=== PATIENT | male | born 1945 | race Caucasian/White ===

== ENCOUNTER → 2024-02-12 | Outpatient (BNVA) | payer MEDICARE, BC, SELFPAY | END | disposition home or self-care (01) | PROVIDERS: PCP Internal Medicine; Referring Provider Internal Medicine; Visit Provider Urology | DX: R33.8 Other retention of urine (principal); I10 Essential (primary) hypertension; E78.00 Pure hypercholesterolemia, unspecified; I25.10 Atherosclerotic heart disease of native coronary artery without angina pectoris; I25.2 Old myocardial infarction; J44.9 Chronic obstructive pulmonary disease, unspecified | CPT/HCPCS: 51702; 99212; G0463 ==

== ENCOUNTER → 2024-07-07 | Outpatient (CLI) | payer MEDICARE, BC, SELFPAY ==
[2024-07-07 15:24] LABS: Collection Type, Urine Clean Catch
[2024-07-07 16:32] LABS: Bacteria,Urine 2+; Bilirubin,Urine Negative (Negative); Blood,Urine 3+ (Negative); Color,Urine Yellow (Lt Yel-Yel); Glucose, Urine Negative (Negative); Hyaline Casts,Urine 1 /hpf (0-1); Ketones,Urine Negative (Negative); Leukocyte Esterase,Urine Positive (Negative); Nitrite,Urine Negative (Negative); Protein,Urine 1+ (Neg - Trace); RBC,Urine 334 /hpf (0-3); Squamous Epithelial Cell,Urine 1 /hpf (0-5); Urobilinogen,Urine Negative mg/dL (0.0-1.0); WBC,Urine 709 /hpf (0-5)
[2024-07-07 16:52] LABS: Clarity,Urine Hazy (Clear/Hazy); Culture Indicated,Urine Yes
== END | disposition home or self-care (01) ==
LOC: SLDO 15:18
PROVIDERS: PCP Internal Medicine; Referring Provider Internal Medicine; Visit Provider Internal Medicine
DX: N39.0 Urinary tract infection, site not specified (principal)
CPT/HCPCS: 81001; 87086; 87106

== ENCOUNTER → 2024-07-19 | Outpatient (CLI) | payer MEDICARE, BC, SELFPAY ==
--- NOTE | 2024-07-19 17:01 | XR_ITS ---
Examination: PA lateral chest 2 views Technique: Upright PA lateral chest 2 views Exam date and time: July 19, 2024 1713 hrs. Comparison June 15, 2024 Indications: Right-sided back and chest pain beginning 4 days ago. Findings: Prominent CHF Enlarged cardiac contour with prominent vascular congestion and bilateral pulmonary edema Consider superimposed extensive bilateral pneumonia Transvenous dual-chamber bipolar cardiac leads satisfactory position Moderate osteopenia Impression: Prominent CHF Consider significant superimposed bilateral pneumonia
== END | disposition home or self-care (01) ==
PROVIDERS: PCP Internal Medicine; Referring Provider Internal Medicine; Visit Provider Internal Medicine
DX: J18.9 Pneumonia, unspecified organism (principal)
CPT/HCPCS: 71046

== ENCOUNTER → 2024-07-21 | Outpatient (CLI) | payer MEDICARE, BC, SELFPAY ==
[2024-07-21 11:37] LABS: Basophils # (Auto) 0.1 Thou/mm3 (0.0-0.2); Basophils % (Auto) 1 % (0-2.5); Eosinophils # (Auto) 0.1 Thou/mm3 (0.0-0.5); Eosinophils % (Auto) 2 % (0-10); Hematocrit 35.2 % (41.0-53.0); Hemoglobin 10.6 g/dL (13.5-16.0); Immature Granulocytes % (Auto) 1 % (0-0); Immature Granulocytes Auto 0.04 Thou/mm3 (0.00-0.00); Lymphocytes # (Auto) 1.5 Thou/mm3 (1.0-4.8); Lymphocytes % (Auto) 19 % (10-50); Mean Corpuscular HGB Conc 30.1 g/dl (31.0-37.0); Mean Corpuscular Volume 93 fL (80-100); Monocytes # (Auto) 0.7 Thou/mm3 (0.0-0.8); Monocytes % (Auto) 8 % (0-12); Neutrophils # (Auto) 5.6 Thou/mm3 (1.8-7.7); Neutrophils % (Auto) 70 % (37-80); Nucleated Red Blood Cell % 0 /100 WBC (0); Platelet Count 260 Thou/mm3 (140-440); RDW Standard Deviation 56.8 fL (35.1-43.9); Red Blood Count 3.79 Miln/mm3 (4.50-5.90); White Blood Count 8.1 Thou/mm3 (3.8-10.6)
[2024-07-21 12:13] LABS: Alanine Aminotransferase 12 U/L (10-49); Albumin, Serum 4.2 gm/dL (3.4-4.8); Alkaline Phosphatase 102 U/L (46-116); Anion Gap 7 (7-16); Aspartate Amino Transferase 14 U/L (0-34); BUN/Creatinine Ratio 17 Ratio (12-20); Blood Urea Nitrogen 26 mg/dL (9-23); Calcium 10.5 mg/dL (8.3-10.6); Calcium (Corrected) 10.5 mg/dL (8.5-10.1); Chloride 109 mMol/L (98-107); Creatinine (Component) 1.5 mg/dL (0.6-1.3); Globulin 2.1 gm/dL (2.3-3.5); Glucose 112 mg/dL (74-106); Osmolality,Calculated 292 (275-295); Potassium 5.2 mMol/L (3.4-5.1); Sodium 144 mMol/L (136-145); Total Protein 6.3 gm/dL (5.7-8.2); eGFR 47 See Note
[2024-07-21 12:27] LABS: Bilirubin,Total 0.5 mg/dL (0.3-1.2)
[2024-07-21 12:39] LABS: B-Type Natriuretic Peptide 1138 pg/mL (0-100)
== END | disposition home or self-care (01) ==
LOC: SLDO 10:50
PROVIDERS: PCP Internal Medicine; Referring Provider Internal Medicine; Visit Provider Internal Medicine
DX: I50.22 Chronic systolic (congestive) heart failure (principal); J18.9 Pneumonia, unspecified organism
CPT/HCPCS: 36415; 80053; 83880; 85025

== ENCOUNTER → 2024-08-20 | Outpatient (CLI) | payer MEDICARE, BC, SELFPAY ==
[2024-08-20 16:05] LABS: Collection Type, Urine Clean Catch; Squamous Epithelial Cell,Urine 0 /hpf (0-5)
[2024-08-20 16:46] LABS: Bacteria,Urine 1+; Bilirubin,Urine Negative (Negative); Blood,Urine 2+ (Negative); Budding Yeast,Urine Present; Color,Urine Yellow (Lt Yel-Yel); Glucose, Urine Negative (Negative); Hyaline Casts,Urine < 1 /hpf (0-1); Ketones,Urine Negative (Negative); Leukocyte Esterase,Urine Positive (Negative); Nitrite,Urine Negative (Negative); PH,Urine 6.5 (5.0-7.0); Protein,Urine 2+ (Neg - Trace); RBC,Urine 71 /hpf (0-3); Specific Gravity,Urine 1.019 (1.001-1.035); Urobilinogen,Urine Negative mg/dL (0.0-1.0); WBC,Urine 916 /hpf (0-5)
[2024-08-20 16:51] LABS: Clarity,Urine Cloudy (Clear/Hazy)
== END | disposition home or self-care (01) ==
PROVIDERS: PCP Internal Medicine; Referring Provider Internal Medicine; Visit Provider Internal Medicine
DX: N39.0 Urinary tract infection, site not specified (principal)
CPT/HCPCS: 81001; 87086; 87106

== ENCOUNTER → 2024-08-20 | Outpatient (CLI) | payer MEDICARE, BC, SELFPAY ==
--- NOTE | 2024-08-20 13:36 | XR_ITS ---
Examination: PA lateral chest 2 views TECHNIQUE: Upright PA lateral chest 2 views Exam date and time: August 20, 2023 1355 hours Comparison July 19, 2024 INDICATIONS: History COPD, SOB chest pain beginning 3 days ago FINDINGS: COPD with hyperexpansion Mild CHF with prominent vascular congestion and septal edema Superimposed pneumonia right base Cardiac leads satisfactory position IMPRESSION: COPD Mild CHF Superimposed pneumonia right base
[2024-08-20 16:09] LABS: Albumin, Serum 4.4 gm/dL (3.4-4.8); Anion Gap 7 (7-16); BUN/Creatinine Ratio 13 Ratio (12-20); Blood Urea Nitrogen 22 mg/dL (9-23); Calcium 10.8 mg/dL (8.3-10.6); Calcium (Corrected) 10.8 mg/dL (8.5-10.1); Carbon Dioxide 28.6 mMol/L (20.0-31.0); Chloride 105 mMol/L (98-107); Creatinine (Component) 1.7 mg/dL (0.6-1.3); Glucose 99 mg/dL (74-106); Osmolality,Calculated 284 (275-295); Phosphorous 3.3 mg/dL (2.4-5.1); Sodium 141 mMol/L (136-145); eGFR 40 See Note
== END | disposition home or self-care (01) ==
LOC: CDIM 13:18 → COPL 14:03
PROVIDERS: PCP Internal Medicine; Referring Provider Internal Medicine; Visit Provider Radiology Diagnostic Radiology
DX: J44.0 Chronic obstructive pulmonary disease with (acute) lower respiratory infection (principal); J18.9 Pneumonia, unspecified organism; I50.22 Chronic systolic (congestive) heart failure
CPT/HCPCS: 36415; 71046; 80069

== ENCOUNTER → 2024-10-06 | Outpatient (CLI) | payer MEDICARE, BC, SELFPAY ==
[2024-10-06 16:16] LABS: Collection Type, Urine Clean Catch
[2024-10-06 18:37] LABS: Bacteria,Urine 1+; Bilirubin,Urine Negative (Negative); Blood,Urine 3+ (Negative); Clarity,Urine Turbid (Clear/Hazy); Color,Urine Yellow (Lt Yel-Yel); Glucose, Urine Negative (Negative); Hyaline Casts,Urine 2 /hpf (0-1); Ketones,Urine Negative (Negative); Leukocyte Esterase,Urine Positive (Negative); Nitrite,Urine Negative (Negative); PH,Urine 5.5 (5.0-7.0); Protein,Urine 1+ (Neg - Trace); RBC,Urine 171 /hpf (0-3); Specific Gravity,Urine 1.014 (1.001-1.035); Squamous Epithelial Cell,Urine 1 /hpf (0-5); Urobilinogen,Urine Negative mg/dL (0.0-1.0); WBC,Urine 304 /hpf (0-5)
[2024-10-06 18:38] LABS: Culture Indicated,Urine Yes
== END | disposition home or self-care (01) ==
LOC: SLDO 16:05
PROVIDERS: PCP Family Medicine; Referring Provider Internal Medicine; Visit Provider Internal Medicine
DX: N39.0 Urinary tract infection, site not specified (principal)
CPT/HCPCS: 81001; 87086

== ENCOUNTER 2024-10-15 10:09 | Inpatient (IN) | payer MEDICARE, BC, SELFPAY ==
[2024-10-15] VITALS (17 sets, daily range): BP systolic 94–144; BP diastolic 56–88; PULSE 74–103; RESP 15–18; TEMP 36–36.9; O2SAT 86–95; BMI 18.1
--- NOTE | 2024-10-15 10:37 | EKG_ITS ---
[facility] Test Date: 2024-10-15 Pat Name: SERGIO SMITH Department: Room: - Gender: Male Outside Plant Technician: : 1945 Requested By: Mick Sahu Order Number: [id number] Reading MD: Mick Sahu Measurements Intervals [place] Rate: 85 P: 28 VT: 163 QRS: -47 QRSD: 112 T: 90 QT: 317 QTc: 378 Interpretive Statements SINUS RHYTHM WITH OCCASIONAL VENTRICULAR PREMATURE COMPLEXES LOW QRS VOLTAGE IN EXTREMITY LEADS [QRS DEFLECTION < 0.5 mV IN LIMB LEADS] LEFT ANTERIOR FASCICULAR BLOCK [QRS AXIS <= -45, QR IN I, RS IN II] POSSIBLE ANTERIOR MYOCARDIAL INFARCTION , PROBABLY OLD [30 ms Q WAVE IN V3/V4, OR R < 0.2 mV IN V4] INFERIOR MYOCARDIAL INFARCTION , PROBABLY OLD [40+ ms Q WAVE AND/OR ST/T ABNORMALITY IN II/aVF] Compared to ECG 06/08/2024 13:02:42 Ventricular premature complex(es) now present Left anterior fascicular block now present Myocardial infarct finding still present /store/S0/[id number]/ecg/[id number].pdf
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
[2024-10-15 11:19] LABS: Base Excess, Venous 0 (-3-3); Lactate (Lactic Acid) 2.3 mMol/L (0.4-2.0); O2 Saturation, Venous 50 % (96-97); PCO2, Venous 40 mmHg (36-56); PO2, Venous 29 mmHg (15-58)
[2024-10-15 11:22] LABS: Basophils # (Auto) 0.1 Thou/mm3 (0.0-0.2); Basophils % (Auto) 1 % (0-2.5); Eosinophils % (Auto) 0 % (0-10); Hematocrit 39.3 % (41.0-53.0); Immature Granulocytes % (Auto) 0 % (0-0); Immature Granulocytes Auto 0.02 Thou/mm3 (0.00-0.00); Lymphocytes # (Auto) 0.7 Thou/mm3 (1.0-4.8); Lymphocytes % (Auto) 8 % (10-50); Mean Corpuscular HGB Conc 30.5 g/dl (31.0-37.0); Mean Corpuscular Volume 88 fL (80-100); Monocytes # (Auto) 0.6 Thou/mm3 (0.0-0.8); Monocytes % (Auto) 8 % (0-12); Neutrophils # (Auto) 6.6 Thou/mm3 (1.8-7.7); Neutrophils % (Auto) 83 % (37-80); Nucleated Red Blood Cell % 0 /100 WBC (0); Platelet Count 187 Thou/mm3 (140-440); RDW Standard Deviation 52.9 fL (35.1-43.9); Red Blood Count 4.45 Miln/mm3 (4.50-5.90)
[2024-10-15 11:33] LABS: INR 1.2 (0.9-1.3); Prothrombin Time 12.7 Seconds (9.0-12.2)
[2024-10-15 11:46] LABS: Alanine Aminotransferase 31 U/L (10-49); Albumin, Serum 4.8 gm/dL (3.4-4.8); Albumin/Globulin Ratio 1.5 (1.2-2.2); Alcohol, Blood Medical < 3.0 mg/dL (0-10.0); Alkaline Phosphatase 119 U/L (46-116); Ammonia < 10 uMol/L (11-32); Anion Gap 14 (7-16); Aspartate Amino Transferase 50 U/L (0-34); B-Type Natriuretic Peptide 2502 pg/mL (0-100); BUN/Creatinine Ratio 22 Ratio (12-20); Bilirubin,Total 1.9 mg/dL (0.3-1.2); Blood Urea Nitrogen 48 mg/dL (9-23); Calcium 11.9 mg/dL (8.3-10.6); Calcium (Corrected) 11.9 mg/dL (8.5-10.1); Carbon Dioxide 26.1 mMol/L (20.0-31.0); Chloride 108 mMol/L (98-107); Creatinine (Component) 2.2 mg/dL (0.6-1.3); Estimated Creatinine Clearance 22.3 mL/min (>60); Globulin 3.3 gm/dL (2.3-3.5); Glucose 96 mg/dL (74-106); Osmolality,Calculated 306 (275-295); Potassium 4.7 mMol/L (3.4-5.1); Procalcitonin 0.13 ng/ml (0.0-0.49); Sodium 148 mMol/L (136-145); Total Protein 8.1 gm/dL (5.7-8.2); eGFR 30 See Note
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
[2024-10-15] MEDS: SODIUM CHLORIDE 0.9% 1000 ML 2,000 ML 150 ML IV (12:01)
[2024-10-15 12:25] LABS: Troponin I 0.058 ng/mL (0.0-0.045)
[2024-10-15 12:29] LABS: Collection Type, Urine Clean Catch; Squamous Epithelial Cell,Urine 0 /hpf (0-5)
[2024-10-15 12:53] LABS: Bilirubin,Urine Negative (Negative); Blood,Urine 3+ (Negative); Color,Urine Brown (Lt Yel-Yel); Glucose, Urine Negative (Negative); Hyaline Casts,Urine < 1 /hpf (0-1); Ketones,Urine 1+ (Negative); Leukocyte Esterase,Urine Positive (Negative); Nitrite,Urine Negative (Negative); PH,Urine 5.5 (5.0-7.0); Protein,Urine 2+ (Neg - Trace); RBC,Urine 1239 /hpf (0-3); Urobilinogen,Urine Negative mg/dL (0.0-1.0); WBC,Urine 254 /hpf (0-5)
[2024-10-15 12:55] LABS: Amphetamine/Methamp Scrn,U Negative (Negative); Barbiturate Screen,Urine Negative (Negative); Benzodiazepines Screen,Urine Negative (Negative); Benzoylecgonine Screen, Ur Negative (Negative); Fentanyl Screen,Urine Negative (Negative); Opiate Screen,Urine Positive (Negative); THC Screen,Urine Negative (Negative)
[2024-10-15 13:05] LABS: Clarity,Urine Turbid (Clear/Hazy); Culture Indicated,Urine Yes
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
[2024-10-15 14:15] LABS: Reflex Lactate? Y
[2024-10-15 15:35] LABS: Lactic Acid, 3 HR 1.3 mMol/L (0.4-2.0)
[2024-10-15] MEDS: PIPER/TAZO INJ 3.375 GM in SODIUM CHLORIDE 0.9% (Popper) 50 ML IV (15:52)
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
[2024-10-15] MEDS: FUROSEMIDE INJ 10 MG/ML VIAL 2 ML 20 MG IVP (16:57)
[2024-10-15 18:44] LABS: Troponin I 0.049 ng/mL (0.0-0.045)
--- NOTE | 2024-10-15 22:07 | PC.NURSE ---
report was called to Priscila. Pt takenm to bernadette on educational institution curator.
[2024-10-16] VITALS (13 sets, daily range): BP systolic 104–119; BP diastolic 64–73; PULSE 54–128; RESP 18–24; TEMP 36.3–36.6; O2SAT 92–98; BMI 19.8
[2024-10-16] MEDS: FUROSEMIDE INJ 10 MG/ML VIAL 2 ML 20 MG IVP ×2 (05:36→19:08)
[2024-10-16 05:40] LABS: Basophils # (Auto) 0.1 Thou/mm3 (0.0-0.2); Basophils % (Auto) 1 % (0-2.5); Eosinophils % (Auto) 1 % (0-10); Hematocrit 34.2 % (41.0-53.0); Hemoglobin 10.2 g/dL (13.5-16.0); Immature Granulocytes % (Auto) 1 % (0-0); Immature Granulocytes Auto 0.04 Thou/mm3 (0.00-0.00); Lymphocytes # (Auto) 0.6 Thou/mm3 (1.0-4.8); Lymphocytes % (Auto) 8 % (10-50); Mean Corpuscular HGB Conc 29.8 g/dl (31.0-37.0); Mean Corpuscular Volume 91 fL (80-100); Monocytes # (Auto) 0.6 Thou/mm3 (0.0-0.8); Monocytes % (Auto) 7 % (0-12); Neutrophils # (Auto) 6.8 Thou/mm3 (1.8-7.7); Neutrophils % (Auto) 84 % (37-80); Nucleated Red Blood Cell % 0 /100 WBC (0); Platelet Count 149 Thou/mm3 (140-440); RDW Standard Deviation 53.9 fL (35.1-43.9); Red Blood Count 3.78 Miln/mm3 (4.50-5.90); White Blood Count 8.1 Thou/mm3 (3.8-10.6)
[2024-10-16 06:06] LABS: Anion Gap 13 (7-16); BUN/Creatinine Ratio 23 Ratio (12-20); Blood Urea Nitrogen 46 mg/dL (9-23); Calcium 10.8 mg/dL (8.3-10.6); Carbon Dioxide 27.3 mMol/L (20.0-31.0); Chloride 110 mMol/L (98-107); Estimated Creatinine Clearance 24.6 mL/min (>60); Glucose 88 mg/dL (74-106); Magnesium 2.5 mg/dL (1.6-2.6); Osmolality,Calculated 308 (275-295); Potassium 4.1 mMol/L (3.4-5.1); Sodium 150 mMol/L (136-145); eGFR 33 See Note
--- NOTE | 2024-10-16 11:37 | PC.NURSE ---
Dr. Vaca notified, patients at bedside and stated hospice changed home medication and unsure what medications patient is on at home. Unable to update med rec.
--- NOTE | 2024-10-16 13:24 | PC.SS ---
SS informed by JENNIFER Lima, patient's family is providing POA copy and was placed in chart. SS obtained copy of POA. POA explains patient's spouse, Mery Hayes, is medical POA. Secondary is listed as patient's daughter Theresa Patel. SS reviewed patient's electronic chart, current POA already scanned into chart as of 04/06/24.
[2024-10-16] MEDS: cefTRIAXone 1,000 MG in SODIUM CHLORIDE 0.9% (Popper) 50 ML 100 MG IV (14:23)
[2024-10-16] MEDS: ACETAMINOPHEN 325 MG TABLET 650 MG PO (14:23)
--- NOTE | 2024-10-16 15:23 | PD.RESPRO ---
Documentation for date of: 10/16/24 Subjective Subjective Interval history: Overnight, patient was apparently agitated and required mittens. Sitter came to the room and patient was calm and able to be taken off the mittens.?Patient seen and examined at bedside this AM.?He was awake but unable to answer questions appropriately. Patient states I want to ask you some questions privately. and then is unable to phrase a directed question. He states ___ is not getting enough water. Patient's family members came to bedside and able to somewhat redirect him but he was still confused. Discussed goals of care with patient's and decision-maker. She is interested is placing the patient back on hospice care but feels she can no longer handle his care at home and would like him placed at SNF with hospice. Referral was sent. Per she would like his UTI to be treated and any conditions possibly contributing to his pain and discomfort to be treated while he is in the hospital. Therefore ceftriaxone was started. Labs and vitals were reviewed.?The patient was saturating 90% on 5L OxyMask but was also fidgeting with and taking off his OxyMask. Labs show worsening sodium of 150 but improved creatinine from 2.2 to 2.0. Will continue with IV diuresis with Lasix 20 mg BID given the fluid overload and AHRF. Should the patient be in pain, may add hydromorphone PRN instead of morphine given adverse behavioral reaction to morphine at home. Review of systems otherwise negative except what is mentioned above. Exam Vital Signs Temp Pulse Resp BP Pulse Ox O2 Del Method O2 Flow Rate 97.9 F 92 21 H 108/70 95 Oxy Mask 8 10/16/24 12:00 10/16/24 12:00 10/16/24 12:10/16/24 12:10/16/24 12:10/16/24 12:10/16/24 12:00 FiO2 2 10/16/24 12:00 Narrative Exam Physical Exam General: Awake and in no acute distress. Conversational but confused and tangential. Patient mildly agitated with OxyMask. HEENT: Normocephalic, atraumatic, mucous membranes moist. Heart: Regular rate and rhythm, no murmurs. Lungs: Mild bilateral pulmonary crackles. Abdomen: Soft, nondistended, nontender, positive bowel sounds. ?No guarding or rebound tenderness. Neurologic: Alert and oriented x3, no gross neurological deficit, and patient able to move all 4 extremities. Extremities: 2+ non-pitting lower extremity edema. Skin: No rash or ecchymoses. Objective Labs 10/18/24 05:33 10/18/24 05:33 Labs: Laboratory Results - last 24 hr 10/15/24 10/15/24 10/16/24 15:28 18:00 05:07 WBC 8.1 RBC 3.78 L Hgb 10.2 L Hct 34.2 L MCV 91 MCH 27.0 MCHC 29.8 L RDW Std Deviation 53.9 H Plt Count 149 D Neut % (Auto) 84 H Lymph % (Auto) 8 L [place] % (Auto) 7 Eos % (Auto) 1 Baso % (Auto) 1 Neut # (Auto) 6.8 Lymph # (Auto) 0.6 L [place] # (Auto) 0.6 Eos # (Auto) 0.0 Baso # (Auto) 0.1 Immature Gran # (Auto) 0.04 H Absolute Nucleated RBC 0.00 Immature Gran % 1 H Nucleated RBC % 0 Sodium 150 H Potassium 4.1 D Chloride 110 H Carbon Dioxide 27.3 Anion Gap 13 BUN 46 H Creatinine 2.0 H Estim Creat Clear Calc 24.6 L eGFR 33 L BUN/Creatinine Ratio 23 H Glucose 88 Calculated Osmolality 308 H Lactic Acid 1.3 Calcium 10.8 H Magnesium 2.5 Troponin I 0.049 H* ABG Interpretation ABG results: 10/15/24 11:05 VBG pH 7.40 VBG pCO2 40 VBG pO2 29 VBG Base Excess 0 Quality Measures Quality Measures none Advance care planning discussed with:: patient and spouse Assessment & Plan Assessment Current Active Medications: Generic Name Dose Route Start Last Admin Trade Name Freq PRN Reason Stop Dose Admin Acetaminophen 650 mg 10/15/24 16:22 10/16/24 14:23 Acetaminophen 325 Mg Tablet PO 11/14/24 16:21 650 mg Q6H PRN Administration PAIN SCALE 1-3 (mild Albuterol/Ipratropium 3 ml 10/15/24 16:22 Albuterol/Ipratropium (Duoneb) Rt Renetta 3 Ml Nebu INH 11/14/24 16:21 Q4H PRN SHORTNESS OF BREATH OR WHEEZE Furosemide 20 mg 10/15/24 16:25 10/16/24 05:36 Furosemide Inj 10 Mg/Ml Vial 2 Ml IVP 11/14/24 16:24 20 mg BIDD QUENTIN Administration Ceftriaxone Sodium 1,000 mg/ 50 mls @ 100 mls/hr 10/16/24 13:29 10/16/24 14:23 Sodium Chloride IV 10/23/24 13:28 100 mls/hr QDAY QUENTIN Administration Ondansetron HCl 4 mg 10/15/24 16:22 Ondansetron Inj 2 Mg/Ml Inj 2 Ml IV 11/14/24 16:21 Q6H PRN NAUSEA OR VOMITING Protocol Plan 79-year-old male with history of dementia, COPD, and HFrEF, who presented with combative behavior. He was admitted for medical management after his wanted to stop the morphine and hospice care at home. He was found to have GEORGE, CHF exacerbation, and elevated troponin and admitted for further management. #Behavioral changes #Dementia, likely Alzheimer's type, with behavioral disturbances #Acute encephalopathy, likely medication adverse reaction Patient's symptoms are likely related to his baseline dementia with behavioral changes. The use of morphine can be contributing as the reported that his aggressive behavior started at the time morphine was started. Other contributors include pain, constipation, and sleep deprivation from hypoxia. -Avoid morphine use -May add hydromorphone if the patient is expressing pain -Hospice referral sent, pending placement #Goals of care discussion/counseling He is DNR/DNI. He was on hospice. His cannot take care of him at home. She wants him to go back to medical treatment as she does not want him to at home Patient has terminal illnesses. Morphine will provide significant improvement in his symptoms however as we are not giving it, then medical treatment with IV diuretics and DuoNebs will help relieve the symptoms 3 goals of care discussion with the patient's , decided on continued hospice care at SNF -Hospice referral sent, case management updated -Pending placement #Acute hypoxic respiratory failure #Acute exacerbation of HFrEF (EF 30%) #COPD without exacerbation In the setting of prominent CHF and baseline COPD. He is borderline hypotensive. -Continue to gently diurese the patient as he is volume overloaded -Monitor I's and O's -Cardiac diet -DuoNebs as needed #GEORGE on CKD Likely cardiorenal in the setting of CHF exacerbation. Creatinine improved after diuresis. -Careful IV diuresis given the borderline BP -Monitor kidney function -Renally dosed medications -Avoid nephrotoxins #UTI UA showed positive leukocyte esterase, 254 WBCs but no bacteria. Patient unable to describe if he is having any symptoms however per she feels that he is in more discomfort and pain. -Was opted to treat the patient's UTI while in hospital -Started ceftriaxone 1 g daily -Pending urine culture -Blood cultures negative 24 hours #Elevated troponin - downtrended Likely type II non-STEMI in the setting of hypoxia and CHF. Management as above. -No need to further trend troponin #Atrial fibrillation, paroxysmal He was on anticoagulation. Rate controlled. Will avoid beta-blockers in the setting of CHF. -Currently not considering anticoagulation due to plan of resuming hospice care. DVT prophylaxis: SCDs GI prophylaxis: None Diet: Cardiac Crawford: None Lines: Peripheral IV Antibiotics: Ceftriaxone [10/16- ] CODE STATUS: FULL Reason for hospitalization: Acute encephalopathy, possibly secondary to medication effect versus worsening dementia versus UTI Patient plan of care was discussed with the attending physician, Dr. Lacy. Jacinda Vaca, PGY-2 Attending Provider Attestation/Addendum I have examined the patient, reviewed labs and imaging findings, discussed the case with the resident(s), and reviewed entered orders. I agree with the plan of care as outlined in this note. Dr. Regino MD
[2024-10-16 16:58] LABS: Anion Gap 11 (7-16); Calcium 10.4 mg/dL (8.3-10.6); Chloride 111 mMol/L (98-107); Potassium 3.7 mMol/L (3.4-5.1); Sodium 151 mMol/L (136-145)
[2024-10-16 17:11] LABS: Albumin, Serum 3.5 gm/dL (3.4-4.8); BUN/Creatinine Ratio 26 Ratio (12-20); Blood Urea Nitrogen 47 mg/dL (9-23); Calcium (Corrected) 10.8 mg/dL (8.5-10.1); Creatinine (Component) 1.8 mg/dL (0.6-1.3); Estimated Creatinine Clearance 29.7 mL/min (>60); Glucose 97 mg/dL (74-106); Osmolality,Calculated 312 (275-295); Phosphorous 3.7 mg/dL (2.4-5.1); eGFR 38 See Note
[2024-10-17] VITALS (12 sets, daily range): BP systolic 103–118; BP diastolic 58–79; PULSE 68–116; RESP 16–32; TEMP 36.3–37.2; O2SAT 91–99; BMI 19.8
--- NOTE | 2024-10-17 01:50 | PC.NURSE ---
PT STRAINING TO HAVE BM ON BEDPAN. SPOKE WITH DR. DE LA CRUZ. NEW ORDERS FOR MIRALAX X1 GIVEN.
[2024-10-17] MEDS: POLYETHYLENE GLYCOL 17 GM PACKET PO (02:03)
[2024-10-17] MEDS: FUROSEMIDE INJ 10 MG/ML VIAL 2 ML 20 MG IVP (05:21)
[2024-10-17 05:50] LABS: Anion Gap 12 (7-16); BUN/Creatinine Ratio 28 Ratio (12-20); Blood Urea Nitrogen 45 mg/dL (9-23); Carbon Dioxide 29.4 mMol/L (20.0-31.0); Chloride 110 mMol/L (98-107); Creatinine (Component) 1.6 mg/dL (0.6-1.3); Estimated Creatinine Clearance 33.4 mL/min (>60); Glucose 97 mg/dL (74-106); Magnesium 2.3 mg/dL (1.6-2.6); Osmolality,Calculated 311 (275-295); Potassium 3.8 mMol/L (3.4-5.1); Sodium 151 mMol/L (136-145); eGFR 43 See Note
[2024-10-17 06:03] LABS: Basophils # (Auto) 0.1 Thou/mm3 (0.0-0.2); Basophils % (Auto) 1 % (0-2.5); Eosinophils % (Auto) 0 % (0-10); Hematocrit 35.3 % (41.0-53.0); Hemoglobin 10.6 g/dL (13.5-16.0); Immature Granulocytes % (Auto) 0 % (0-0); Immature Granulocytes Auto 0.02 Thou/mm3 (0.00-0.00); Lymphocytes # (Auto) 0.7 Thou/mm3 (1.0-4.8); Lymphocytes % (Auto) 8 % (10-50); Mean Corpuscular Volume 90 fL (80-100); Monocytes # (Auto) 0.7 Thou/mm3 (0.0-0.8); Monocytes % (Auto) 8 % (0-12); Neutrophils # (Auto) 6.9 Thou/mm3 (1.8-7.7); Neutrophils % (Auto) 83 % (37-80); Nucleated Red Blood Cell % 0 /100 WBC (0); Platelet Count 132 Thou/mm3 (140-440); RDW Standard Deviation 53.1 fL (35.1-43.9); Red Blood Count 3.93 Miln/mm3 (4.50-5.90); White Blood Count 8.3 Thou/mm3 (3.8-10.6)
[2024-10-17] MEDS: cefTRIAXone 1,000 MG in SODIUM CHLORIDE 0.9% (Popper) 50 ML 100 MG IV (08:05)
--- NOTE | 2024-10-17 10:01 | PC.SS ---
Addendum entered by Anabel Aldridge 10/17/24 16:47: Patient requires 3midnight stay for SNF. [facility] can accept patient with comfort care. [facility] declined, no male beds available. [facility] and [facility] declined. [facility]- no response. Addendum entered by Anabel Aldridge 10/17/24 10:05: [facility] completed and closed. Original Note: SNF referral submitted to the following local SNFs: [facility], [facility], [facility], [facility], and [facility]. SS awaiting response from accepting facilities. SS contacted patient's spouse, Mery Hayes [phone], to confirm discharge plan of SNF with Hospice. Patient's spouse Mery stated she would like patient to discharge to a local SNF in [place] with [facility]. Patient's spouse Mery stated patient was with [facility] recently and would like to continue with [facility]. SS informed Mery she would inform her once responses from SNF are received.
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
[2024-10-17] MEDS: HALOPERIDOL LACT INJ 5 MG/ML VIAL 2.5 MG IV (11:42)
[2024-10-17] MEDS: ACETAMINOPHEN 325 MG TABLET 650 MG PO (17:46)
[2024-10-17] MEDS: PREPARATION H OINT 30 GM TUBE PR (17:46)
[2024-10-17] MEDS: QUEtiapine FUMARATE 25 MG TABLET PO (20:19)
[2024-10-17] MEDS: HALOPERIDOL LACT INJ 5 MG/ML VIAL IV (21:18)
[2024-10-18] VITALS (9 sets, daily range): BP systolic 98–123; BP diastolic 73–84; PULSE 84–114; RESP 16–33; TEMP 36.2–37.1; O2SAT 86–97; BMI 19.8; BMI 17.6
[2024-10-18 05:59] LABS: Basophils % (Auto) 0 % (0-2.5); Eosinophils % (Auto) 0 % (0-10); Hematocrit 36.8 % (41.0-53.0); Hemoglobin 10.9 g/dL (13.5-16.0); Immature Granulocytes % (Auto) 1 % (0-0); Immature Granulocytes Auto 0.04 Thou/mm3 (0.00-0.00); Lymphocytes # (Auto) 0.6 Thou/mm3 (1.0-4.8); Lymphocytes % (Auto) 8 % (10-50); Mean Corpuscular HGB Conc 29.6 g/dl (31.0-37.0); Mean Corpuscular Volume 91 fL (80-100); Monocytes # (Auto) 0.7 Thou/mm3 (0.0-0.8); Monocytes % (Auto) 10 % (0-12); Neutrophils # (Auto) 6.3 Thou/mm3 (1.8-7.7); Neutrophils % (Auto) 82 % (37-80); Nucleated Red Blood Cell % 0 /100 WBC (0); Platelet Count 120 Thou/mm3 (140-440); RDW Standard Deviation 54.4 fL (35.1-43.9); Red Blood Count 4.03 Miln/mm3 (4.50-5.90); White Blood Count 7.7 Thou/mm3 (3.8-10.6)
[2024-10-18 06:20] LABS: Anion Gap 8 (7-16); BUN/Creatinine Ratio 29 Ratio (12-20); Blood Urea Nitrogen 38 mg/dL (9-23); Calcium 11.1 mg/dL (8.3-10.6); Carbon Dioxide 34.6 mMol/L (20.0-31.0); Chloride 111 mMol/L (98-107); Creatinine (Component) 1.3 mg/dL (0.6-1.3); Estimated Creatinine Clearance 41.1 mL/min (>60); Glucose 125 mg/dL (74-106); Magnesium 2.4 mg/dL (1.6-2.6); Osmolality,Calculated 315 (275-295); Potassium 3.5 mMol/L (3.4-5.1); Sodium 154 mMol/L (136-145); eGFR 56 See Note
[2024-10-18] MEDS: cefTRIAXone 1,000 MG in SODIUM CHLORIDE 0.9% (Popper) 50 ML 100 MG IV (09:10)
--- NOTE | 2024-10-18 09:51 | PC.SS ---
Alberto Hayes is a 79 year old male admitted to [facility] for Behavior changes, CHF exacerbation. SS conducted over the phone contact with pt and POA, Mery Horn [phone]. Mery confirmed demographic information. Pt lives at home with her. Prior to admission pt was requiring a lot of assistance and utilized a walker. [facility] prior to admission. DC options discussed and Mery requested SNF placement with Hospice services. Pts PCP is Dr. Adkins at Dr. Menon office. SS currently working on placement for pt. SS will remain available for any additional needs. ?
[2024-10-18] MEDS: RINGERS LACTATED 1000 ML 1,000 ML 999 ML IV (09:59)
--- NOTE | 2024-10-18 11:49 | ESPR_ITS ---
<Statement entered by Jacinda Vaca MD - 10/19/24 01:08> Patient was seen and examined by me personally. I have directly supervised and reviewed the above documentation by the team resident and agree with its findings with any exceptions or additional findings as below. Plan of care was discussed with the attending, Dr. Lacy. Today the patient continued to appear altered and was less conversant today. He was resting in bed when seen this AM. Discussed with , Mery, decision-maker regarding comfort care status. She was agreeable to discharge to SNF on comfort care. However this evening, he continued to desaturate with 15L O2 and minimal movements. Attempts were made to feed him but he did not take any food and would also desaturate to the 70s quickly. Thus joint decision was made to start the patient on comfort measures. Spoke with Mery via phone as well as Mery's sister in person at the bedside. We agreed on starting a hydromorphone drip as the patient had previously had adverse reaction to morphine. He also had adverse reactions to Ativan so Haldol was added as a prn for breakthrough agitation. Full comfort measures are started, discussed with bedside RN at hand off that the patient's supplemental O2 may be down titrated to 2L for comfort approximately one hour after starting the drip. Jacinda Vaca, PGY-2 Documentation for date of: 10/18/24 Subjective Subjective Interval history: Patient was seen and examined by the bedside. Overnight patient was anxious and agitated, received haldol IV. In the morning, he was confused, lethargic AOx1. He is arranged to be discharged to the [place] [facility] with comfort care. Got an update that SNF requires patient to be on 5L O2 to be accepted. Had a discussion with Dr. Vaca and Dr. Sun present regarding family regarding the discharge plan and the requirement for SNF acceptance. Explained that he will most likely need to be started on medications for air hunger and got a permission that in in case of worsening of his condition to start fentanil drip. It was discussed to not use morphine and lorazepam due to hallucinations and agitation side effects. Exam Vital Signs Temp Pulse Resp BP Pulse Ox O2 Del Method O2 Flow Rate 98.7 F 109 H 26 H 123/83 86 L Oxy Mask 12 10/18/24 08:00 10/18/24 08:00 10/18/24 08:00 10/18/24 08:00 10/18/24 08:00 10/18/24 08:00 10/18/24 08:00 FiO2 2 10/17/24 19:49 Narrative Exam Physical Exam General: Lethargic. Chronically ill-appearing, emaciated. HEENT: Normocephalic, atraumatic, mucous membranes moist. Heart: Regular rate and rhythm, no murmurs. Lungs: Clear to auscultation with no wheezing or crackles. Abdomen: Soft, nondistended, nontender, positive bowel sounds. ?No guarding or rebound tenderness. Neurologic: Alert and oriented x1, lethargic Extremities: No edema. Skin: Bite wound on the right hand, scratch wound on the right shoulder covered with bandages. Objective Labs 10/18/24 05:33 10/18/24 05:33 Labs: Laboratory Results - last 24 hr 10/18/24 05:33 WBC 7.7 RBC 4.03 L Hgb 10.9 L Hct 36.8 L MCV 91 MCH 27.0 MCHC 29.6 L RDW Std Deviation 54.4 H Plt Count 120 L Neut % (Auto) 82 H Lymph % (Auto) 8 L Schuyler % (Auto) 10 Eos % (Auto) 0 Baso % (Auto) 0 Neut # (Auto) 6.3 Lymph # (Auto) 0.6 L Schuyler # (Auto) 0.7 Eos # (Auto) 0.0 Baso # (Auto) 0.0 Immature Gran # (Auto) 0.04 H Absolute Nucleated RBC 0.00 Immature Gran % 1 H Nucleated RBC % 0 Sodium 154 H Potassium 3.5 Chloride 111 H Carbon Dioxide 34.6 H Anion Gap 8 BUN 38 H Creatinine 1.3 Estim Creat Clear Calc 41.1 L eGFR 56 L BUN/Creatinine Ratio 29 H Glucose 125 H Calculated Osmolality 315 H Calcium 11.1 H Magnesium 2.4 ABG Interpretation ABG results: 10/15/24 11:05 VBG pH 7.40 VBG pCO2 40 VBG pO2 29 VBG Base Excess 0 Quality Measures Quality Measures none Advance care planning discussed with:: spouse, child and other Assessment & Plan Assessment Current Active Medications: Generic Name Dose Route Start Last Admin Trade Name Freq PRN Reason Stop Dose Admin Acetaminophen 650 mg 10/15/24 16:22 10/17/24 17:46 Acetaminophen 325 Mg Tablet PO 11/14/24 16:21 650 mg Q6H PRN Administration PAIN SCALE 1-3 (mild Albuterol/Ipratropium 3 ml 10/15/24 16:22 Albuterol/Ipratropium (Duoneb) Rt Renetta 3 Ml Nebu INH 11/14/24 16:21 Q4H PRN SHORTNESS OF BREATH OR WHEEZE Furosemide 20 mg 10/15/24 16:25 10/17/24 05:21 Furosemide Inj 10 Mg/Ml Vial 2 Ml IVP 11/14/24 16:24 20 mg BIDD QUENTIN Administration Ceftriaxone Sodium 1,000 mg/ 50 mls @ 100 mls/hr 10/16/24 13:29 10/18/24 09:10 Sodium Chloride IV 10/23/24 13:28 100 mls/hr QDAY QUENTIN Administration Olanzapine 2.5 mg 10/18/24 21:00 Olanzapine 2.5 Mg Tablet PO 11/17/24 20:59 HS QUENTIN Ondansetron HCl 4 mg 10/15/24 16:22 Ondansetron Inj 2 Mg/Ml Inj 2 Ml IV 11/14/24 16:21 Q6H PRN NAUSEA OR VOMITING Protocol Polyethylene Glycol 17 gm 10/18/24 09:00 10/18/24 09:12 Polyethylene Glycol 17 Gm Packet PO 11/17/24 08:59 Not Given QDAY QUENTIN Plan 79-year-old male with history of dementia, COPD, and HFrEF, who presented with combative behavior. He was admitted for medical management after his wanted to stop the morphine and hospice care at home. He was found to have GEORGE, CHF exacerbation, and elevated troponin and admitted for further management. #Behavioral changes #Dementia, likely Alzheimer's type, with behavioral disturbances #Acute encephalopathy, likely medication adverse reaction Patient's symptoms are likely related to his baseline dementia with behavioral changes. The use of morphine can be contributing as the reported that his aggressive behavior started at the time morphine was started. Other contributors include pain, constipation, and sleep deprivation from hypoxia. -Avoid morphine use -May add hydromorphone if the patient is expressing pain -Patient was accepted for comfort care at SNF, but the requirement is to be on <5L O2. - In case of worsening of condition, family agreed to start fentanyl drip #Goals of care discussion/counseling He is DNR/DNI. He was on hospice. His cannot take care of him at home. She wants him to go back to medical treatment as she does not want him to at home Patient has terminal illnesses. Morphine will provide significant improvement in his symptoms however as we are not giving it, then medical treatment with IV diuretics and DuoNebs will help relieve the symptoms 10/16 goals of care discussion with the patient's , decided on continued hospice care at SNF 10/18 Had a d - Had a discussion with family regarding the discharge plan and the requirement for SNF acceptance. Explained that he will most likely need to be started on medications for air hunger and got a permission that in in case of worsening of his condition to start fentanyl drip. -Pending placement #Acute hypoxic respiratory failure #Acute exacerbation of HFrEF (EF 30%) #COPD without exacerbation In the setting of prominent CHF and baseline COPD. He is borderline hypotensive. -Continue to gently diurese the patient as he is volume overloaded -Monitor I's and O's -Cardiac diet -DuoNebs as needed #GEORGE on CKD Likely cardiorenal in the setting of CHF exacerbation. Creatinine improved after diuresis. -Careful IV diuresis given the borderline BP -Monitor kidney function -Renally dosed medications -Avoid nephrotoxins #UTI UA showed positive leukocyte esterase, 254 WBCs but no bacteria. Patient unable to describe if he is having any symptoms however per she feels that he is in more discomfort and pain. -Ceftriaxone 1 g daily -Urine culture negative -Blood cultures negative #Elevated troponin - downtrended Likely type II non-STEMI in the setting of hypoxia and CHF. Management as above. -No need to further trend troponin #Atrial fibrillation, paroxysmal He was on anticoagulation. Rate controlled. Will avoid beta-blockers in the setting of CHF. -Currently not considering anticoagulation due to plan of resuming hospice care. DVT prophylaxis: SCDs GI prophylaxis: None Diet: Cardiac Crawford: None Lines: Peripheral IV Antibiotics: Ceftriaxone [10/16- ] CODE STATUS: DNR Plan of care discussed with attending Dr. Lacy, PGY-[address] Vaca and PGY-[address] Edwards. Soledad Sun MD, PGY 1. Attending Provider Attestation/Addendum I have examined the patient, reviewed labs and imaging findings, discussed the case with the resident(s), and reviewed entered orders. I agree with the plan of care as outlined in this note, with these additional summaries/recommendations: Patient seen at bedside. Overnight patient became agitated requiring haloperidol. Patient remains encephalopathic this morning. Patient became agitated again and was given additional dose of haloperidol. Patient currently requiring 12 L nasal cannula. Pending further goals of care with patient's medical decision maker. Patient given fluid bolus for worsening hypernatremia and Lasix put on hold. Goals of care was held with patients medical decision maker who is patients . All treatment options including full treatment, hospice, and comfort care discussed at length. At this time patients has decided to proceed with comfort care. She showed good understanding that we will stop all medicines except for comfort. Dr. Regino MD
--- NOTE | 2024-10-18 12:26 | PC.SS ---
Addendum entered by Marbella Ricci 10/18/24 15:19: Pt is currently on 15 liters of O2. Addendum entered by Marbella Ricci 10/18/24 14:53: SS followed up with who states she has spoken to Stella at [facility] about pt discharging to their facility under comfort care not Hospice Services and is agreeable. states pt does not have Medical. states she is unable to care for pt at home. Stella explained pt had an open worker's comp from the past and she will follow up with her billing department to confirm they can still accept pt. Original Note: SS spoke to Stella from [facility] and confirmed they can accept pt under comfort care. SS has informed and provided her with Stella's phone number to discuss coverage at the facility. Per Stella at [facility] pt does not have Medical to cover Hospice at SNF.
[2024-10-18] MEDS: HALOPERIDOL LACT INJ 5 MG/ML VIAL IV (13:55)
[2024-10-18] MEDS: PREPARATION H OINT 30 GM TUBE PR (17:15)
[2024-10-18] MEDS: OLANZapine 2.5 MG TABLET PO (17:17)
[2024-10-18] MEDS: HYDROMORPHONE IV (19:56)
[2024-10-18] MEDS: [UNRECOGNIZED DRUG - OTHER] IV (19:56)
[2024-10-18] MEDS: SCOPOLAMINE 1 MG TDSY TOP (20:16)
[2024-10-18] MEDS: HYDROmorphone INJ 2 MG/ML VIAL IVP (20:16)
--- NOTE | 2024-10-18 22:20 | PC.NURSE ---
Pt transferred from [facility] calm, resting, and sedated on Dilaudid drip. On oxymask at 12L. Pt becomes restless when being manipulated for repositioning, pulling off oxygen mask and telemetry leads. Allevyn replaced to sacrum d/t soilage; new Allevyns placed to bilat heels for prevention and elevated heels on pillows. Assuming care of patient at this time.
[2024-10-19 06:00] VITALS: BMI 17.6
[2024-10-19 07:33] VITALS: BP 84/54; PULSE 89; RESP 12; TEMP 36.2; O2SAT 82
[2024-10-19 08:00] VITALS: PULSE 89
[2024-10-19 12:00] VITALS: PULSE 90
--- NOTE | 2024-10-19 12:30 | PC.SS ---
SS followed up with Stella at [facility] who is aware pt is DNR. SS has sent updated inquiry to [facility], upon their request. Stella at [facility] explained she will provide inquiry for D.O.N to review. [facility], [facility], [facility], [facility], and [facility] have declined. Corie Del Rosario is pending from [facility].
--- NOTE | 2024-10-19 12:45 | ESPR_ITS ---
<Statement entered by Jacinda Vaca MD - 10/19/24 23:48> Patient was seen and examined by me personally. I have directly supervised and reviewed documentation by the team resident and agree with its findings with any exceptions or additional findings as below. Plan of care was discussed with the attending, Dr. Lacy. Comfort measures are continued. Patient seen at bedside, sleeping, appeared comfortable and on hydromorphone drip. Per case management obstacles to the patient's discharge to facility include inability for the facilities to administer pain medication drips or IV pushes. and decision-maker emphasized that she would like patient to stay in [place], however case management discussed that this may not be possible. SNF search has been expanded. Jacinda Vaca, PGY-2 Documentation for date of: 10/19/24 Subjective Subjective Interval history: Patient seen and examined at the bedside. Sleeping in the bed comfortably, breathing deeply with short apnea episodes. Continues to be on hydromorphone drip. Last measured vital signs showed O2 sat of 82. Right now is on 2 L of atmospheric oxygen. Pending placement to SNF for comfort care, awaiting further answer. Exam Vital Signs Temp Pulse Resp BP Pulse Ox O2 Del Method O2 Flow Rate 97.2 F 89 12 84/54 L 82 L Oxy Mask 4 10/19/24 07:33 10/19/24 07:33 10/19/24 07:33 10/19/24 07:33 10/19/24 07:33 10/19/24 07:33 10/19/24 07:33 FiO2 2 10/18/24 12:00 Narrative Exam Physical Exam General: Sleeping in bed. Chronically ill-appearing, emaciated. HEENT: Normocephalic, atraumatic, mucous membranes moist. Heart: Regular rate and rhythm, no murmurs. Lungs: Clear to auscultation with no wheezing or crackles. Abdomen: Soft, nondistended, nontender, positive bowel sounds. ?No guarding or rebound tenderness. Neurologic: Alert and oriented x0, lethargic Extremities: No edema. Skin: Bite wound on the right hand, scratch wound on the right shoulder covered with bandages. Objective Labs 10/18/24 05:33 10/18/24 05:33 ABG Interpretation ABG results: 10/15/24 11:05 VBG pH 7.40 VBG pCO2 40 VBG pO2 29 VBG Base Excess 0 Quality Measures Quality Measures none Advance care planning discussed with:: spouse Assessment & Plan Assessment Current Active Medications: Generic Name Dose Route Start Last Admin Trade Name Freq PRN Reason Stop Dose Admin Acetaminophen 650 mg 10/15/24 16:22 10/17/24 17:46 Acetaminophen 325 Mg Tablet PO 11/14/24 16:21 650 mg Q6H PRN Administration PAIN SCALE 1-3 (mild Acetaminophen 650 mg 10/19/24 08:10 Acetaminophen Supp 650 Mg Supp IL 11/17/24 18:48 Q6HR PRN Fever > 100.4 or Pain(1-3) Protocol Albuterol/Ipratropium 3 ml 10/15/24 16:22 Albuterol/Ipratropium (Duoneb) Rt Renetta 3 Ml Nebu INH 11/14/24 16:21 Q4H PRN SHORTNESS OF BREATH OR WHEEZE Artificial Tears 1 drop 10/18/24 18:49 Artificial Tears 225 Drop/15 Ml Btl BOTH EYES 11/17/24 18:48 Q4HR PRN Dry eyes Atropine Sulfate 2 drop 10/18/24 18:49 Atropine Sulf Op Renetta 1% 5 Ml Btl SL 11/17/24 18:48 Q4HR PRN SECRETIONS Protocol Glycopyrrolate 0.2 mg 10/18/24 18:49 Glycopyrrolate Inj 0.2 Mg/Ml Vial IV 11/17/24 18:48 QID PRN As needed for secretions Protocol Haloperidol Lactate 5 mg 10/18/24 18:52 Haloperidol Lact Inj 5 Mg/Ml Vial IV 10/23/24 18:51 Q6HR PRN AGITATION (SEVERE) Hydromorphone HCl 0.2 mg 10/18/24 18:49 10/18/24 20:16 Hydromorphone Inj 2 Mg/Ml Vial IVP 10/23/24 18:48 0.2 mg Q1H PRN Administration PAIN SCALE 4-10(Mod-Sev Protocol Hydromorphone HCl 30 mg/ IV 30 mls @ 0.5 mls/hr 10/18/24 18:51 10/18/24 19:56 Miscellaneous Supplies IV 11/17/24 18:50 0.5 mls/hr .Q24H PRN Administration TITRATE UP FOR PAIN Ondansetron HCl 4 mg 10/15/24 16:22 Ondansetron Inj 2 Mg/Ml Inj 2 Ml IV 11/14/24 16:21 Q6H PRN NAUSEA OR VOMITING Protocol Scopolamine 1 mg 10/18/24 19:00 10/18/24 20:16 Scopolamine 1 Mg Tdsy TOP 11/17/24 18:59 1 mg Q3D QUENTIN Administration Plan 79-year-old male with history of dementia, COPD, and HFrEF, who presented with combative behavior. He was admitted for medical management after his wanted to stop the morphine and hospice care at home. He was found to have GEORGE, CHF exacerbation, and elevated troponin and admitted for further management. #Behavioral changes #Dementia, likely Alzheimer's type, with behavioral disturbances #Acute encephalopathy, likely medication adverse reaction Patient's symptoms are likely related to his baseline dementia with behavioral changes. The use of morphine can be contributing as the reported that his aggressive behavior started at the time morphine was started. Other contributors include pain, constipation, and sleep deprivation from hypoxia. Plan: -Avoid morphine and ativan use -Hydromorphone drip for comfort #Goals of care discussion/counseling He is DNR/DNI. He was on hospice. His cannot take care of him at home. She wants him to go back to medical treatment as she does not want him to at home Patient has terminal illnesses. Morphine will provide significant improvement in his symptoms however as we are not giving it, then medical treatment with IV diuretics and DuoNebs will help relieve the symptoms 10/16 goals of care discussion with the patient's , decided on continued hospice care at SNF 3 Had a discussion with family regarding the discharge plan and the requirement for SNF acceptance. Plan: -Family showed understanding and agreed to proceed with comfort measures in the hospital -Pending placement for comfort care at SNF #Acute hypoxic respiratory failure #Acute exacerbation of HFrEF (EF 30%) #COPD without exacerbation #GEORGE on CKD #UTI #Elevated troponin - downtrended #Atrial fibrillation, paroxysmal Plan: - Comfort care DVT prophylaxis:none GI prophylaxis: None Diet: comfort feedings Crawford: None Lines: Peripheral IV Antibiotics: none CODE STATUS: DNR Plan of care discussed with attending Dr. Lacy, PGY-[address] Vaca and PGY-[address] Edwards. Soledad Sun MD, PGY 1. Attending Provider Attestation/Addendum I have examined the patient, reviewed labs and imaging findings, discussed the case with the resident(s), and reviewed entered orders. I agree with the plan of care as outlined in this note, with these additional summaries/recommendations: Patient seen at bedside. No acute overnight events. Goals of care meeting was held with patient's medical decision maker yesterday and patient was transitioned to comfort care. He was placed on Dilaudid gtt. and appears very comfortable at bedside. Patient's was updated via telephone today. All questions answered to satisfaction. Patient is currently pending placement although suspect he may unfortunately pass away prior to placement. Dr. Regino MD
--- NOTE | 2024-10-19 15:16 | PC.SS ---
SS followed up with Stella at [facility] who explained they are unable to accommodate pt on a hydro morphine drip and Haldol has to be discontinued for 24 hours before accepting pt to their facility. [facility] is also unable to accommodate Dilaudid pushes, per physician resident's request. SS has informed patient's and sister who were at bedside. They are aware SS will seek placement outside the area through [place] for Hospice bed.
[2024-10-19 16:00] VITALS: PULSE 92
[2024-10-19 16:11] VITALS: PULSE 92; RESP 19; O2SAT 97
[2024-10-19 20:00] VITALS: BP 90/56; PULSE 100; RESP 20; TEMP 36.3; O2SAT 72
[2024-10-20] VITALS (7 sets, daily range): BP systolic 78–88; BP diastolic 44–52; PULSE 83–100; RESP 14–17; TEMP 36.1–36.7; O2SAT 90–93; BMI 17.5
--- NOTE | 2024-10-20 09:06 | PC.SS ---
Addendum entered by AZRA Calderon 10/20/24 14:33: [facility] Hospice nurse informed based on her assessment of the patient today he appears imminent and unstable for transport. Updated medical team during rounds. Daily re-assessment to bed held regarding patient's medical status. Addendum entered by AZRA Calderon 10/20/24 12:17: Hospice referral was sent to [facility] via [employer]. Addendum entered by AZRA Calderon 10/20/24 12:10: Met with patient's , Mery to discuss discharge plan. Patient's does not wish to pursue with [facility] in [place]. Updated SNF in [place] to inform has declined the placement. Patient's , Mery informs she [facility] to do an on-site assessment with the patient to determine if able to accept the patient with services and transition him to home hospice. Addendum entered by AZRA Calderon 10/20/24 10:06: [facility] in [place] informed they can accept the patient today at their facility with transition to oral morphine. Updated Dr. Vaca and patient's to make aware. Medical team to discuss with patient's . Patient's is also considering home hospice now as well, will allow time to discuss with medical team and patient's to make decision on disposition plan. Addendum entered by AZRA Calderon 10/20/24 09:12: Received a call from a SNF in [facility]. Spoke with Santa who informed her and her DON will to determine if able to accept the patient. Santa informs they would be able to offer comfort care/end of life. Original Note: SS follow up: SNF search expanded to SNF's around [place].
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
[2024-10-21] VITALS (9 sets, daily range): BP systolic 47–64; BP diastolic 26–38; PULSE 67–87; RESP 15–18; TEMP 35.7–35.9; O2SAT 91–94; BMI 17.8
--- NOTE | 2024-10-21 08:50 | PC.SS ---
SS follow up: discussed with attending Dr. Lacy and brand planner Marbella in regards to the current status of the patient. Per Dr. Lacy, patient is imminent and would not be ideal to discharge the patient at this time.
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
--- NOTE | 2024-10-21 19:26 | PC.NURSE ---
Pt seen resting comfortable no s/s of discomfort noted respirations even, at bedside current volume to be infused on Diluadid pump 9.17, catheter secure changed.
[2024-10-21] MEDS: SCOPOLAMINE 1 MG TDSY TOP (20:51)
--- NOTE | 2024-10-21 20:54 | PC.NURSE ---
current volume to be infused 8.34
[2024-10-21] MEDS: HYDROMORPHONE IV (23:37)
[2024-10-21] MEDS: [UNRECOGNIZED DRUG - OTHER] IV (23:37)
--- NOTE | 2024-10-21 23:50 | PC.NURSE ---
Wasted 9.5ml of dilaudid with Hope RN IV tubing due to be changed today
--- NOTE | 2024-10-22 00:03 | PC.NURSE ---
Infused 1.95, plunket nurse paused for new start IV and change IV tubing and [employer] syringe, current volume to be infused per pump 26.1
--- NOTE | 2024-10-22 00:35 | PC.NURSE ---
Received call from ICU mechanical technician pt having frequent PVC's and pacemaker firing, into room to check on pt HR decreased 30-35, with agonal respirations, stayed in room with pt (comfort care)
--- NOTE | 2024-10-22 00:40 | PC.NURSE ---
HR stopped-unable to auscultated, absent chest rise, absent breath sounds, pupils fixed, no response to stimulation. Contacted MDs-will be up
--- NOTE | 2024-10-22 00:50 | PC.NURSE ---
Dr. Curiel in to pronounce pt.
--- NOTE | 2024-10-22 00:55 | DES_ITS ---
<Statement entered by Dominik Lemus MD - 10/26/24 05:42> I reviewed above note and agree with findings and plans. I have also personally examined the patient with medicine team and went over assessment and plan with medical team including creative intern and resident physician. Documentation for date of: 10/22/24 Pronouncement Note Date and Time of Date of : 10/22/24 Time of : 00:40 PCOD Preliminary cause of : Cardiopulmonary arrest Contributing Factors (1) Acute hypoxemic respiratory failure: Summary Additional details: I received a call by the nurse at 0040 mentioning concerns for patient not having pulse and they called me to come evaluate pt if he had passed. When evaluated, pt appeared not to have any chest rise, and there was no pulse. Telebox was reviewed which showed no pulse and was flat line. Corneal reflex was negative. Pupils were fixed and dilated and not responsive to light. No chest rise was observed and breath sounds were absent. Heart sounds were not heard as well. Gag reflex was absent. Pt was pronounced at 0050. Additional Data Confirmation of : no pulse, no respirations, no heart sounds and pupils fixed and dilated Family: contacted (Mery ) Additional persons at bedside: other (Nurse) Attending/PCP notified?: Yes (Dr. Lemus ) Attending physician: Dominik Lemus MD Was code activated?: No (Pt is comfort care, DNR/DNI ) Autopsy requested?: No
--- NOTE | 2024-10-22 01:16 | PC.NURSE ---
Contacted donor network regarding pt , spoke with Rafael MAURICIO # [phone] pt not a candidate for donation, ok to release remains.
--- NOTE | 2024-10-22 01:33 | PC.NURSE ---
Wasted 29.2ml Dilaudid with Angella ELIAS.
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
== END 2024-10-22 00:50 | disposition expired | DRG 70 ==
LOC: SERX 14:18 → SERHOLD 17:04 → S2NX 21:55 → S3SX 10-18 22:29
PROVIDERS: Student in an Organized Health Care Education/Training Program; Admitting Provider Student in an Organized Health Care Education/Training Program; Emergency Provider Emergency Medicine; PCP Internal Medicine; Visit Provider Internal Medicine
DX: G93.40 Encephalopathy, unspecified (principal); I50.23 Acute on chronic systolic (congestive) heart failure; J96.01 Acute respiratory failure with hypoxia; J18.9 Pneumonia, unspecified organism; F02.818 Dementia in other diseases classified elsewhere, unspecified severity, with other behavioral disturbance; N17.9 Acute kidney failure, unspecified; N39.0 Urinary tract infection, site not specified; J44.1 Chronic obstructive pulmonary disease with (acute) exacerbation; E87.0 Hyperosmolality and hypernatremia; I95.9 Hypotension, unspecified; I49.3 Ventricular premature depolarization; G30.9 Alzheimer's disease, unspecified; I25.10 Atherosclerotic heart disease of native coronary artery without angina pectoris; N40.0 Benign prostatic hyperplasia without lower urinary tract symptoms; I48.0 Paroxysmal atrial fibrillation; K59.00 Constipation, unspecified; E83.52 Hypercalcemia; S51.852A Open bite of left forearm, initial encounter; N18.9 Chronic kidney disease, unspecified; Z72.820 Sleep deprivation; Z66 Do not resuscitate; I46.8 Cardiac arrest due to other underlying condition; R79.89 Other specified abnormal findings of blood chemistry; Z79.891 Long term (current) use of opiate analgesic; Z87.891 Personal history of nicotine dependence; Z79.01 Long term (current) use of anticoagulants; Z95.5 Presence of coronary angioplasty implant and graft; Z51.5 Encounter for palliative care; Z88.8 Allergy status to other drugs, medicaments and biological substances; T40.2X5A Adverse effect of other opioids, initial encounter
CPT/HCPCS: 36415; 70450; 71045; 80048; 80053; 80069; 80307; 80320; 81001; 82140; 82803; 83605; 83735; 83880; 84145; 84484; 85025; 85610; 86850; 86900; 86901; 87040; 87086; 92610; 93005; 93225; 96127; 96361; 96365; 96375; 99291; 99292; A9270; J0696; J1630; J1940; J2543; J3490; J7030; J7050; J7120; G0480